=== PATIENT | female | born 1995 | race Caucasian/White ===

== ENCOUNTER 2021-03-19 14:11 | Emergency (ER) | payer SELFPAY ==
[~2021-03-19] VITALS: Ht 170.2 cm; Wt 114.7 kg
[2021-03-19] MEDS ORDERED: ACETAMINOPHEN 325 MG TAB PO ONE (15:20)
[2021-03-19 16:27] LABS: BASO % 0.4 % (0.0-1.0); EOS # 0.1 10^3/uL (0.0-0.5); EOS % 0.9 % (0.0-3.0); HEMATOCRIT 39.3 % (36.0-47.0); HEMOGLOBIN 13.1 g/dl (12.0-15.5); LYMPH # 1.8 10^3/uL (1.5-5.0); LYMPH % 17.8 % (24.0-44.0); MEAN CORPUSCULAR HEMOGLOBIN 29.2 pg (27.0-33.0); MEAN CORPUSCULAR HGB CONC 33.3 g/dl (32.0-36.5); MEAN CORPUSCULAR VOLUME 87.7 fl (80.0-96.0); MONO # 0.8 10^3/uL (0.0-0.8); MONO % 7.8 % (2.0-8.0); NEUTROPHILS # 7.3 10^3/uL (1.5-8.5); NEUTROPHILS % 72.8 % (36.0-66.0); PLATELET COUNT, AUTOMATED 235 10^3/uL (150-450); RED BLOOD COUNT 4.48 10^6/uL (4.00-5.40)
[2021-03-19 16:53] LABS: MONO SCRN NEGATIVE (NEGATIVE)
[2021-03-19] MEDS ORDERED: AMOX500T PO (17:27)
[2021-03-19] MEDS ORDERED: MAGICMW SSP (17:27)
[2021-03-19 17:37] VITALS: BP 116/76
== END 2021-03-19 17:41 | disposition home or self-care (01) ==
LOC: M ED 14:11
DX: J03.90 Acute tonsillitis, unspecified (principal); Z88.8 Allergy status to other drugs, medicaments and biological substances

== ENCOUNTER → 2021-04-20 | Outpatient (REF) ==
[~2021-04-20] MED LIST: AMOX500T PO; CEFD300CAP PO; MAGICMW SSP; TESS100C PO; ZITHTAB PO
== END ==
LOC: M EMP 08:02
PROVIDERS: ATTEND Family Medicine
DX: Z20.822 Contact with and (suspected) exposure to COVID-19 (principal)

== ENCOUNTER 2021-04-21 06:29 | Emergency (ER) | payer BC, SELFPAY ==
[~2021-04-21] VITALS: Ht 170.2 cm; Wt 115.1 kg
[~2021-04-21 06:29] MED LIST changes: -CEFD300CAP PO; -TESS100C PO; -ZITHTAB PO
--- NOTE | 2021-04-21 10:05 | REP ---
INDICATION: cough r/o pneumonia. COMPARISON: None. TECHNIQUE: PA and lateral FINDINGS: There are subtle patchy opacities in the right lower lobe. The lung corbett are otherwise clear. The pleural angles are sharp. The cardiomediastinal silhouette is within normal limits. The osseous structures are intact. IMPRESSION: Evidence of developing right lower lobe pneumonia. <Electronically signed by Brent Menjivar > 04/21/21 1004
[2021-04-21] MEDS ORDERED: ZITHTAB PO (10:23)
[2021-04-21] MEDS ORDERED: TESS100C PO (10:23)
[2021-04-21] MEDS ORDERED: CEFD300CAP PO (10:23)
[2021-04-21 10:45] VITALS: BP 132/80
== END 2021-04-21 10:45 | disposition home or self-care (01) ==
LOC: M ED 06:29
DX: J18.9 Pneumonia, unspecified organism (principal); Z88.8 Allergy status to other drugs, medicaments and biological substances; Z79.899 Other long term (current) drug therapy